=== PATIENT | female | born 1955 | race Caucasian/White ===

== ENCOUNTER 2019-11-19 06:52 | Day surgery (SDC) | payer MEDICARE, BC ==
[~2019-11-19 06:52] MED LIST: Lactated Ringers 1,000 ML IV SCH; Lidocaine 1%/Sod Bicarbonate in NS 8.4% 1 ML Syringe IDERM PRN; Sodium Chloride 0.9% 10 ML Syringe FLUSH PRN
--- NOTE | 2019-11-19 07:52 | PCM.PREANE ---
Preanesthetic Assessment - Procedure Proposed Procedure: Colonoscopy - Anesthesia/Transfusion/Family Hx Anesthesia History: Prior Anesthesia Without Reaction Family History of Anesthesia Reaction: No Transfusion History: Prior Transfusion Without Reaction Type of Transfusion Reactions: Reports: Unknown - Review of Systems General: No Symptoms Pulmonary: No Symptoms Cardiovascular: Dyspnea on Exertion Gastrointestinal: Nausea Neurological: No Symptoms Other: Reports: Diabetes (137 @ 0600) - Physical Assessment NPO Status Date: 11/19/19 NPO Status Time: 05:00 Vital Signs: Last Vital Signs Temp 36.3 C 11/19/19 07:05 Pulse 88 11/19/19 07:05 Resp 16 11/19/19 07:05 BP 143/98 H 11/19/19 07:05 Pulse Ox 96 11/19/19 07:05 Height: 1.63 m Weight: 89.811 kg ASA Class: 3 Mental Status: Alert & Oriented x3 Airway Class: Mallampati = 2 Dentition: Reports: Missing Tooth/Teeth, Caries Thyro-Mental Finger Breadths: 2 Mouth Opening Finger Breadths: 2 ROM/Head Extension: Full Lungs: Clear to Auscultation, Normal Respiratory Effort, Decreased Breath Sounds Cardiovascular: Regular Rate, Regular Rhythm - Allergies Allergies/Adverse Reactions: Allergies Allergy/AdvReac Type Severity Reaction Status Date / Time No Known Allergies Allergy Verified 11/18/19 12:49 - Blood Blood Available: No Product(s) Available: None - Anesthesia Plan Pre-Op Medication Ordered: Beta Maria Victoria Beta Maria Victoria: Metoprolol Med Last Dose Date: 11/19/19 Med Last Dose Time: 05:00 - Acknowledgements Anesthesia Type Planned: MAC Pt an Appropriate Candidate for the Planned Anesthesia: Yes Alternatives and Risks of Anesthesia Discussed w Pt/Guardian: Yes Pt/Guardian Understands and Agrees with Anesthesia Plan: Yes PreAnesthesia Questionnaire HEENT History: Reports: Allergic Rhinitis, Cataract, Impaired Vision Other HEENT History: Wears glasses Cardiovascular History: Reports: Bypass, Heart Failure, High Cholesterol, Hypertension, MD Respiratory History: Reports: Pneumonia, Recurrent Gastrointestinal History: Reports: Diverticulosis Other Gastrointestinal History: gastric ulcer, LLQ pain, sigmoid thickening, dairy intolerance Genitourinary History: Reports: None DEV OPS ENGINEER History: Reports: Fibroids, Musculoskeletal History: Reports: Arthritis, Osteoarthritis, RA Neurological History: Reports: Migraines Psychiatric History: Reports: None Endocrine/Metabolic History: Reports: Diabetes, Type II, Hypothyroidism, Vitamin D Deficiency Hematologic History: Reports: Anemia, Blood Transfusion(s) Other Hematologic History: leukocytosis Immunologic History: Reports: None Oncologic (Cancer) History: Reports: None Dermatologic History: Reports: Psoriasis Other Dermatologic History: left foot wound - Infectious Disease History Infectious Disease History: Reports: Chicken Pox, Measles, Mumps, Pertussis ( Whooping Cough) - Past Surgical History Head Surgeries/Procedures: Reports: None HEENT Surgical History: Reports: Adenoidectomy, Tonsillectomy, Other (See Below) Other HEENT Surgeries/Procedures: eye procedure Cardiovascular Surgical History: Reports: Coronary Artery Bypass GI Surgical History: Reports: Appendectomy, Cholecystectomy, Hernia, Abdominal, Hernia, Inguinal Other GI Surgeries/Procedures: 2 bleeding ulcers Female Surgical History: Reports: Section, D&C, Hysterectomy, Oophorectomy Male Surgical History: Reports: None Endocrine Surgical History: Reports: Thyroidectomy Neurological Surgical History: Reports: None Musculoskeletal Surgical History: Reports: Knee Replacement Other Musculoskeletal Surgeries/Procedures:: bilateral knee replacements Oncologic Surgical History: Reports: None Dermatological Surgical History: Reports: None - SUBSTANCE USE Smoking Status *Q: Current Every Day Smoker Tobacco Use Within Last Twelve Months: Cigarettes Second Hand Smoke Exposure: Yes Days Per Week of Alcohol Use: 0 Number of Drinks Per Day: 0 Total Drinks Per Week: 0 Recreational Drug Use History: No - HOME MEDS Home Medications: Home Meds Aspirin [Halfprin] 81 mg PO DAILY 01/17/15 [History] metFORMIN [Glucophage XR] 1,000 mg PO BID 01/17/15 [History] Loratadine [Claritin] 10 mg PO DAILY PRN 04/07/15 [History] Metoprolol Succinate [Toprol XL] 25 mg PO DAILY 04/07/15 [History] Ferrous Sulfate [Iron] 325 mg PO DAILY 08/19/16 [History] Garlic 1,000 mg PO DAILY 08/19/16 [History] Levothyroxine Sodium [Synthroid] 137 mcg PO DAILY 08/22/16 [History] Rosuvastatin Calcium 20 mg PO BEDTIME 08/22/16 [History] Potassium Chloride 10 meq PO DAILY #1 tablet.er 08/23/16 [Rx] Calcium Carbonate [Calcium] 600 mg PO DAILY 11/18/19 [History] Cholecalciferol (Vitamin D3) [Vitamin D3] 2,000 unit PO DAILY 11/18/19 [History] Dulaglutide [Trulicity] 1.5 mg SQ MO 11/18/19 [History] Empagliflozin [Jardiance] 25 mg PO QAM 11/18/19 [History] Furosemide 20 mg PO DAILY 11/18/19 [History] L Acidophil/B Lactis/B Longum [Florajen3] 460 mg PO DAILY 11/18/19 [History] - CURRENT (IN HOUSE) MEDS Current Meds: Current Medications Lactated Ringer's (Ringers, Lactated) 1,000 mls @ 125 mls/hr IV ASDIRECTED NILAM Stop: 11/19/19 23:00 Last Admin: 11/19/19 07:20 Dose: 125 mls/hr Lidocaine/Sodium Bicarbonate (Buffered Lidocaine 1% In Ns 8.4%) 0.25 ml IDERM ONETIME PRN PRN Reason: Prior to IV Start Stop: 11/19/19 18:00 Last Admin: 11/19/19 07:19 Dose: 0.25 ml Sodium Chloride (Saline Flush) 10 ml FLUSH ASDIRECTED PRN PRN Reason: Keep Vein Open Stop: 11/19/19 18:00
[2019-11-19] MEDS ORDERED: fentaNYL 100 MCG/2 ML SDV ONE (08:01)
[2019-11-19] MEDS ORDERED: Propofol 200 MG/20 ML SDV ONE ×2 (08:01→09:38)
[2019-11-19] MEDS ORDERED: Lidocaine 1% 4 ML ONE (08:01)
--- NOTE | 2019-11-19 10:17 | PCM48HPAN ---
Post Anesthesia Note - EVALUATION WITHIN 48HRS OF ANESTHETIC Vital Signs in Normal Range: Yes Patient Participated in Evaluation: Yes Respiratory Function Stable: Yes (2L O2) Airway Patent: Yes Cardiovascular Function Stable: Yes Hydration Status Stable: Yes Pain Control Satisfactory: Yes Nausea and Vomiting Control Satisfactory: Yes Mental Status Recovered: Yes Vital Signs: Last Vital Signs Temp 36.3 C 11/19/19 07:05 Pulse 88 11/19/19 07:05 Resp 16 11/19/19 07:05 BP 143/98 H 11/19/19 07:05 Pulse Ox 96 11/19/19 07:05
[2019-11-19 11:02] VITALS: BP 140/86; PULSE 82
--- NOTE | 2019-11-19 15:50 | PCM.PRNOTE ---
- Free Text/Narrative Note: Date: 11/19/2019 Procedure: diagnostic colonoscopy Endoscopist: Lane Marks MD Hx: remote history of diverticulitis, now with chronic abdominal pain and CT imaging showing abnormal thickening of the sigmoid colon. Findings: redundant colon. Minimal scattered diverticular disease. Cecum visualized. Prep was good. A few benign appearing polyps were biopsied, no stricture or malignant appearing lesion was identified. Detailed Report: The patient was taken to the endoscopy suite and placed in left lateral decubitus position. Timeout was performed, and monitored anesthesia care was initiated. Visual inspection of the anus revealed no gross abnormality. Digital rectal exam was unremarkable. The colonoscope was lubricated and advanced all the way to the ileocecal valve. Prep was noted to be good. On slow withdrawal of the scope, mucosal surfaces were carefully inspected. There was noted minimal scattered diverticular disease, and a few small benign- appearing polyps that were biopsied. Of note, there did not appear to be any mucosal abnormality at the sigmoid colon or rectosigmoid junction corresponding to findings on CT scan. Retroflexion in the rectum revealed no significant hemorrhoidal disease. The patient tolerated the procedure well. Lane Marks MD General Surgery
== END 2019-11-19 11:21 | disposition home or self-care (01) ==
LOC: JD.SDS 06:52
PROVIDERS: ATTEND Surgery
DX: D12.2 Benign neoplasm of ascending colon (principal); D12.3 Benign neoplasm of transverse colon; D12.5 Benign neoplasm of sigmoid colon; K62.1 Rectal polyp; K57.30 Diverticulosis of large intestine without perforation or abscess without bleeding; Q43.8 Other specified congenital malformations of intestine; I11.0 Hypertensive heart disease with heart failure; I50.9 Heart failure, unspecified; E78.00 Pure hypercholesterolemia, unspecified; G43.909 Migraine, unspecified, not intractable, without status migrainosus; M17.10 Unilateral primary osteoarthritis, unspecified knee; M06.9 Rheumatoid arthritis, unspecified; E11.9 Type 2 diabetes mellitus without complications; E55.9 Vitamin D deficiency, unspecified; F17.210 Nicotine dependence, cigarettes, uncomplicated; Z87.19 Personal history of other diseases of the digestive system; Z79.82 Long term (current) use of aspirin; Z79.84 Long term (current) use of oral hypoglycemic drugs; Z90.49 Acquired absence of other specified parts of digestive tract; Z79.899 Other long term (current) drug therapy
CPT/HCPCS: 00811; J2001; J2704; J3010; J7120

== ENCOUNTER 2021-04-03 12:11 | Emergency (ER) | payer MEDICARE, BC ==
[2021-04-03 12:34] VITALS: BP 110/77; PULSE 82
[2021-04-03] MEDS ORDERED: Sodium Chloride 0.9% 10 ML Syringe FLUSH PRN (12:44)
[2021-04-03] MEDS ORDERED: Meropenem 1 GM in Sodium Chloride 0.9% 100 ML IV ONE (12:54)
[2021-04-03] MEDS ORDERED: Vancomycin 1.5 GM in Sodium Chloride 0.9% 500 ML IV ONE (13:15)
--- NOTE | 2021-04-03 13:53 | EDM.PDOC ---
ED HPI GENERAL MEDICAL PROBLEM - General Chief Complaint: Lower Extremity Injury/Pain Stated Complaint: RT ANKLE INJURY Time Seen by Provider: 04/03/21 12:20 Source of Information: Reports: Patient, RN Notes Reviewed History Limitations: Reports: No Limitations - History of Present Illness INITIAL COMMENTS - FREE TEXT/NARRATIVE: Patient is a 65-year-old female presenting to the emergency department with complaints of a painful ulceration to the bottom of her right great toe. She reports 3 weeks ago, she fell and injured her right ankle and foot. She had pain to the ankle and foot for some time but this resolved. Reports 3 days ago she noticed an open area on the bottom of her right great toe as well as redness and warmth beginning to extend up her foot. Patient has a history of type 2 diabetes. Denies any fever, nausea, or vomiting, however states she has been chilled as of recent. Right Foot Pain Score (Numeric/FACES): 10 - Related Data Allergies Allergy/AdvReac Type Severity Reaction Status Date / Time No Known Allergies Allergy Verified 04/03/21 12:24 Home Meds: Home Meds Aspirin [Halfprin] 81 mg PO DAILY 01/17/15 [History] metFORMIN [Glucophage XR] 1,000 mg PO BID 01/17/15 [History] Loratadine [Claritin] 10 mg PO DAILY PRN 04/07/15 [History] Metoprolol Succinate [Toprol XL] 25 mg PO DAILY 04/07/15 [History] Ferrous Sulfate [Iron] 325 mg PO DAILY 08/19/16 [History] Garlic 1,000 mg PO DAILY 08/19/16 [History] Levothyroxine Sodium [Synthroid] 137 mcg PO DAILY 08/22/16 [History] Rosuvastatin Calcium 20 mg PO BEDTIME 08/22/16 [History] Potassium Chloride 10 meq PO DAILY #1 tablet.er 08/23/16 [Rx] Calcium Carbonate [Calcium] 600 mg PO DAILY 11/18/19 [History] Cholecalciferol (Vitamin D3) [Vitamin D3] 2,000 unit PO DAILY 11/18/19 [History] Dulaglutide [Trulicity] 1.5 mg SQ MO 11/18/19 [History] Empagliflozin [Jardiance] 25 mg PO QAM 11/18/19 [History] Furosemide 20 mg PO DAILY 11/18/19 [History] L Acidophil/B Lactis/B Longum [Florajen3] 460 mg PO DAILY 11/18/19 [History] Past Medical History HEENT History: Reports: Allergic Rhinitis, Cataract, Impaired Vision Other HEENT History: Wears glasses Cardiovascular History: Reports: Bypass, Heart Failure, High Cholesterol, Hypertension, [place] Respiratory History: Reports: Pneumonia, Recurrent Gastrointestinal History: Reports: Diverticulosis Other Gastrointestinal History: gastric ulcer, LLQ pain, sigmoid thickening, dairy intolerance Genitourinary History: Reports: None MANAGER TECHNOLOGY History: Reports: Fibroids, Musculoskeletal History: Reports: Arthritis, Osteoarthritis, RA Neurological History: Reports: Migraines Psychiatric History: Reports: None Endocrine/Metabolic History: Reports: Diabetes, Type II, Hypothyroidism, Vitamin D Deficiency Hematologic History: Reports: Anemia, Blood Transfusion(s) Other Hematologic History: leukocytosis Immunologic History: Reports: None Oncologic (Cancer) History: Reports: None Dermatologic History: Reports: Psoriasis Other Dermatologic History: left foot wound - Infectious Disease History Infectious Disease History: Reports: Chicken Pox, Measles, Mumps, Pertussis (Whooping Cough) - Past Surgical History Head Surgeries/Procedures: Reports: None HEENT Surgical History: Reports: Adenoidectomy, Tonsillectomy, Other (See Below) Other HEENT Surgeries/Procedures: eye procedure Cardiovascular Surgical History: Reports: Coronary Artery Bypass GI Surgical History: Reports: Appendectomy, Cholecystectomy, Hernia, Abdominal, Hernia, Inguinal Other GI Surgeries/Procedures: 2 bleeding ulcers Female Surgical History: Reports: Section, D&C, Hysterectomy, Oophorectomy Endocrine Surgical History: Reports: Thyroidectomy Neurological Surgical History: Reports: None Musculoskeletal Surgical History: Reports: Knee Replacement Other Musculoskeletal Surgeries/Procedures:: bilateral knee replacements Oncologic Surgical History: Reports: None Dermatological Surgical History: Reports: None Social & Family History - Family History HEENT: Reports: Cataract Cardiac: Reports: High Cholesterol, Hypertension, Pacemaker, Stent Respiratory: Reports: Asthma GI: Reports: Hiatal Hernia Musculoskeletal: Reports: Arthritis Neurological: Reports: Alzheimers Disease Endocrine/Metabolic: Reports: Diabetes, type II Dermatologic: Reports: Psoriasis - Tobacco Use Tobacco Use Status *Q: Current Every Day Tobacco User Years of Tobacco use: 50 Packs/Tins Daily: 1 - Caffeine Use Caffeine Use: Reports: Coffee - Recreational Drug Use Recreational Drug Use: No Review of Systems - Review of Systems Review Of Systems: See Below Constitutional: Reports: Chills. Denies: Fever, Weakness Eyes: Reports: No Symptoms Ears: Reports: No Symptoms Nose: Reports: No Symptoms Mouth/Throat: Reports: No Symptoms Respiratory: Reports: No Symptoms Cardiovascular: Reports: No Symptoms GI/Abdominal: Reports: No Symptoms. Denies: Abdominal Pain, Nausea, Vomiting Genitourinary: Reports: No Symptoms Musculoskeletal: Reports: No Symptoms Skin: Reports: Other (Painful ulceration to the ventral right great toe with redness and warmth.) ED EXAM, GENERAL - Physical Exam Exam: See Below General Appearance: Alert, WD/WN, No Apparent Distress Respiratory/Chest: No Respiratory Distress, Lungs Clear, Normal Breath Sounds, No Accessory Muscle Use, Chest Non-Tender Cardiovascular: Normal Peripheral Pulses, Regular Rate, Rhythm, No Edema, No Gallop, No JVD, No Murmur, No Rub Neurological: Alert, Oriented, CN II-XII Intact, Normal Cognition, Normal Gait, Normal Reflexes, No Motor/Sensory Deficits Psychiatric: Normal Affect, Normal Mood Skin Exam: Other (2 cm full-thickness decubitus ulcer to the ventral aspect of the right great toe. 1.5 cm closed, unstageable ulceration immediately proximal to this. Redness, warmth, and edema extending approximately penitent[facility] up the foot.) Course - Vital Signs Last Recorded V/S: Last Vital Signs Temp 97.2 F 04/03/21 12:31 Pulse 82 04/03/21 12:31 Resp 18 04/03/21 12:31 BP 110/77 04/03/21 12:31 Pulse Ox 93 L 04/03/21 12:31 - Orders/Labs/Meds Orders: Active Orders 24 hr Category Date Time Status Foot wo Cont Rt [CT] Stat Exams 04/03/21 12:51 Taken CULTURE BLOOD [BC] Stat Lab 04/03/21 13:05 Received CULTURE BLOOD [BC] Stat Lab 04/03/21 13:10 Received Blood Culture x2 Reflex Set [OM.PC] Stat Oth 04/03/21 12:48 Ordered Peripheral IV Insertion Adult [OM.PC] Stat Oth 04/03/21 12:44 Ordered Labs: Laboratory Tests 04/03/21 04/03/21 04/03/21 Range/Units 13:05 13:05 13:05 WBC 15.37 H (3.98-10.04) K/mm3 RBC 4.70 (3.98-5.22) M/mm3 Hgb 13.8 D (11.2-15.7) gm/dl Hct 42.0 (34.1-44.9) % MCV 89.4 (79.4-94.8) fl MCH 29.4 (25.6-32.2) pg MCHC 32.9 (32.2-35.5) g/dl RDW Std Deviation 45.7 (36.4-46.3) fL Plt Count 357 D (182-369) K/mm3 MPV 9.9 (9.4-12.3) fl Neut % (Auto) 80.0 H (34.0-71.1) % Lymph % (Auto) 12.0 L (19.3-51.7) % [place] % (Auto) 6.9 (4.7-12.5) % Eos % (Auto) 0.6 L (0.7-5.8) Baso % (Auto) 0.2 (0.1-1.2) % Neut # (Auto) 12.30 H (1.56-6.13) K/mm3 Lymph # (Auto) 1.84 (1.18-3.74) K/mm3 [place] # (Auto) 1.06 H (0.24-0.36) K/mm3 Eos # (Auto) 0.09 (0.04-0.36) K/mm3 Baso # (Auto) 0.03 (0.01-0.08) K/mm3 Manual Slide Review Abnormal smear Sodium 137 (136-145) mEq/L Potassium 4.8 (3.5-5.1) mEq/L Chloride 98 (98-107) mEq/L Carbon Dioxide 32 (21-32) mEq/L Anion Gap 11.8 (5-15) BUN 16 (7-18) mg/dL Creatinine 0.8 (0.55-1.02) mg/dL Est Cr Clr Drug Dosing 59.73 mL/min Estimated GFR (MDRD) > 60 (>60) mL/min BUN/Creatinine Ratio 20.0 H (14-18) Glucose 183 H (70-99) mg/dL Lactic Acid 1.5 (0.4-2.0) mmol/L Calcium 9.5 (8.5-10.1) mg/dL Total Bilirubin 0.3 (0.2-1.0) mg/dL AST 25 (15-37) U/L ALT 41 (14-59) U/L Alkaline Phosphatase 84 (46-116) U/L C-Reactive Protein 6.8 H* (<1.0) mg/dL Total Protein 8.2 (6.4-8.2) g/dl Albumin 3.1 L (3.4-5.0) g/dl Globulin 5.1 gm/dL Albumin/Globulin Ratio 0.6 L (1-2) SARS-CoV-2 RNA (CLAUDIA) (NEGATIVE) 04/03/21 Range/Units 14:22 WBC (3.98-10.04) K/mm3 RBC (3.98-5.22) M/mm3 Hgb (11.2-15.7) gm/dl Hct (34.1-44.9) % MCV (79.4-94.8) fl MCH (25.6-32.2) pg MCHC (32.2-35.5) g/dl RDW Std Deviation (36.4-46.3) fL Plt Count (182-369) K/mm3 MPV (9.4-12.3) fl Neut % (Auto) (34.0-71.1) % Lymph % (Auto) (19.3-51.7) % [place] % (Auto) (4.7-12.5) % Eos % (Auto) (0.7-5.8) Baso % (Auto) (0.1-1.2) % Neut # (Auto) (1.56-6.13) K/mm3 Lymph # (Auto) (1.18-3.74) K/mm3 [place] # (Auto) (0.24-0.36) K/mm3 Eos # (Auto) (0.04-0.36) K/mm3 Baso # (Auto) (0.01-0.08) K/mm3 Manual Slide Review Sodium (136-145) mEq/L Potassium (3.5-5.1) mEq/L Chloride (98-107) mEq/L Carbon Dioxide (21-32) mEq/L Anion Gap (5-15) BUN (7-18) mg/dL Creatinine (0.55-1.02) mg/dL Est Cr Clr Drug Dosing mL/min Estimated GFR (MDRD) (>60) mL/min BUN/Creatinine Ratio (14-18) Glucose (70-99) mg/dL Lactic Acid (0.4-2.0) mmol/L Calcium (8.5-10.1) mg/dL Total Bilirubin (0.2-1.0) mg/dL AST (15-37) U/L ALT (14-59) U/L Alkaline Phosphatase (46-116) U/L C-Reactive Protein (<1.0) mg/dL Total Protein (6.4-8.2) g/dl Albumin (3.4-5.0) g/dl Globulin gm/dL Albumin/Globulin Ratio (1-2) SARS-CoV-2 RNA (CLAUDIA) Negative (NEGATIVE) Meds: Medications Discontinued Medications Generic Name Dose Route Start Last Admin Trade Name Freq PRN Reason Stop Dose Admin Acetaminophen 650 mg 04/03/21 14:01 04/03/21 14:19 Acetaminophen 325 Mg Tab PO 04/03/21 14:02 650 mg NOW ONE Administration Meropenem 1 gm/ Sodium 100 mls @ 200 mls/hr 04/03/21 12:54 04/03/21 13:44 Chloride IV 04/03/21 13:23 200 mls/hr ONETIME ONE Administration Vancomycin HCl 1.5 gm/ Sodium 500 mls @ 250 mls/hr 04/03/21 13:15 04/03/21 14:18 Chloride IV 04/03/21 15:14 250 mls/hr ONETIME ONE Administration Sodium Chloride 10 ml 04/03/21 12:44 04/03/21 13:45 Sodium Chloride 0.9% 10 Ml Syringe FLUSH 10 ml ASDIRECTED PRN Administration Keep Vein Open Vancomycin HCl 1 dose 04/03/21 12:54 Pharmacy To Dose - Vancomycin .XX 04/03/21 12:55 ONETIME ONE - Re-Assessments/Exams Free Text/Narrative Re-Assessment/Exam: Patient is a 65-year-old female presenting to the emergency department for evaluation with regards to a painful, erythematous, draining decubitus ulceration to the ventral aspect of her right great toe. On exam, she has a 2 cm full-thickness decubitus ulcer to the ventral aspect of her right great toe as well as a closed, unstageable ulceration immediately proximal to this. She has redness, warmth, and erythema extending penitentiary up her foot. Concern would be for osteomyelitis. I have ordered blood work, blood cultures, CT scan of the foot, and empiric antibiotic therapy to include vancomycin and Merrem IV. 04/03/21 14:26 Hematology significant for WBC elevated at 15.37, glucose 183, CRP 6.8. CT scan shows no evidence of osteomyelitis. It does show soft tissue ulceration volar to the great toe. Patient requesting Tylenol for discomfort. Last dose was around 10 AM this morning. I will discuss with the hospitalist regarding admission. 04/03/21 1450 Case was discussed with Dr. Garcia, hospitalist at [facility] in [place]. He is excepted the patient for direct admission. Patient would like to go by private vehicle. She will complete her vancomycin infusion and then depart for [place]. Departure - Departure Time of Disposition: 14:50 Disposition: DC/Tfer to Acute Hospital 02 Condition: Good Clinical Impression: Diabetic infection of right foot - Discharge Information Referrals: Ping Rodriguez PAYROLL DIRECTOR [Primary Care Provider] - Forms: ED Department Discharge Sepsis Event Note (ED) - Evaluation Sepsis Screening Result: No Definite Risk - Focused Exam Vital Signs: Vital Signs Temp Pulse Resp BP Pulse Ox 04/03/21 12:31 97.2 F 82 18 110/77 93 L - My Orders Last 24 Hours: My Active Orders 04/03/21 12:44 Peripheral IV Insertion Adult [OM.PC] Stat 04/03/21 12:48 Blood Culture x2 Reflex Set [OM.PC] Stat 04/03/21 12:51 Foot wo Cont Rt [CT] Stat 04/03/21 13:05 CULTURE BLOOD [BC] Stat 04/03/21 13:10 CULTURE BLOOD [BC] Stat - Assessment/Plan Last 24 Hours: My Active Orders 04/03/21 12:44 Peripheral IV Insertion Adult [OM.PC] Stat 04/03/21 12:48 Blood Culture x2 Reflex Set [OM.PC] Stat 04/03/21 12:51 Foot wo Cont Rt [CT] Stat 04/03/21 13:05 CULTURE BLOOD [BC] Stat 04/03/21 13:10 CULTURE BLOOD [BC] Stat
[2021-04-03] MEDS ORDERED: Acetaminophen 325 MG Tab PO ONE (14:01)
--- NOTE | 2021-04-04 13:06 | CT ---
CT right foot Technique: Multiple axial sections through the right foot were obtained. Reconstructed coronal and sagittal images were obtained. Comparison: Prior right foot radiographic study of 03/11/10. Findings: On the lateral view there is very slight cortical erosion being seen within the middle phalanx which is suspicious for a small area of osteomyelitis. Soft tissue swelling is noted most prominent within the first toe with soft tissue ulcerations. Degenerative change is noted within the first MTP joint. Plantar spur is noted. Minimal spur at the attachment of the Achilles tendon to the calcaneus is seen. Multiple bony densities are noted off the inferior medial malleolus and medial talus which are well corticated and are compatible with old injury. No other acute abnormality is appreciated. Impression: 1. Findings which are felt compatible with mild osteomyelitis within the middle phalanx of the first toe. This is a disagreement with preliminary report. 2. Degenerative change and soft tissue swelling and soft tissue ulceration as noted above. Diagnostic code #5 I somewhat disagree with preliminary report from [facility], finalized on 04/03/21, 3:02 PM CONDITIONING COACH, code 3
== END 2021-04-03 17:00 ==
LOC: JD.ED 12:11
DX: E11.628 Type 2 diabetes mellitus with other skin complications (principal); L89.890 Pressure ulcer of other site, unstageable; E78.00 Pure hypercholesterolemia, unspecified; I11.0 Hypertensive heart disease with heart failure; I50.9 Heart failure, unspecified; I25.2 Old myocardial infarction; M19.90 Unspecified osteoarthritis, unspecified site; E11.9 Type 2 diabetes mellitus without complications; E03.9 Hypothyroidism, unspecified; Z79.84 Long term (current) use of oral hypoglycemic drugs; Z79.899 Other long term (current) drug therapy; Z79.82 Long term (current) use of aspirin; Z72.0 Tobacco use; Z20.822 Contact with and (suspected) exposure to COVID-19
CPT/HCPCS: 36415; 73700; 80053; 83605; 85025; 86140; 87040; 96365; 96366; 96367; 99284; A9270; J2185; J3370; J7040; U0002

== ENCOUNTER 2021-12-16 23:33 | Emergency (ER) | payer MEDICARE, BC ==
[2021-12-16 23:52] VITALS: BP 122/72; PULSE 93
[2021-12-17] MEDS ORDERED: Ondansetron 4 MG/2 ML SDV IVPUSH ONE (00:05)
[2021-12-17] MEDS ORDERED: Sodium Chloride 0.9% 1,000 ML IV SCH (00:15)
[2021-12-17] MEDS: Sodium Chloride 0.9% 10 ML Syringe FLUSH PRN ×2 (00:24→01:19)
[2021-12-17] MEDS ORDERED: Morphine 4 MG/ML Syringe IVPUSH ONE (00:50)
[2021-12-17] MEDS ORDERED: Sodium Chloride 0.9% 10 ML SDV FLUSH ONE (01:17)
[2021-12-17] MEDS ORDERED: Iopamidol 612 MG/ML 100 ML Bottle IVPUSH ONE (01:17)
== END 2021-12-17 02:30 | disposition home or self-care (01) ==
LOC: JD.ED 23:33
DX: K59.00 Constipation, unspecified (principal); I11.0 Hypertensive heart disease with heart failure; I50.9 Heart failure, unspecified; E78.00 Pure hypercholesterolemia, unspecified; I25.2 Old myocardial infarction; M06.9 Rheumatoid arthritis, unspecified; E11.9 Type 2 diabetes mellitus without complications; E03.9 Hypothyroidism, unspecified; D64.9 Anemia, unspecified; Z90.49 Acquired absence of other specified parts of digestive tract; Z72.0 Tobacco use; Z79.82 Long term (current) use of aspirin; Z79.84 Long term (current) use of oral hypoglycemic drugs; Z79.899 Other long term (current) drug therapy
CPT/HCPCS: 36415; 74177; 80053; 83690; 83735; 85025; 86140; 96374; 96375; 99284; J2270; J2405; J7030; Q9967

== ENCOUNTER 2022-01-25 18:26 | Inpatient (IN) | payer MEDICARE, BC ==
[2022-01-25] MEDS ORDERED: Lactated Ringers 1,000 ML IV ONE (19:19)
[2022-01-25] MEDS ORDERED: cefTRIAXone 1 GM in Sodium Chloride 0.9% 100 ML IV ONE (20:41)
[2022-01-25] MEDS ORDERED: Ondansetron 4 MG Tab.DIS PO PRN (20:54)
[2022-01-25] MEDS ORDERED: LORazepam 2 MG/ML SDV IV ONE (20:54)
[2022-01-25] MEDS ORDERED: cefTRIAXone 1 GM AdvVial IV ONE (21:03)
[2022-01-25] MEDS ORDERED: Pantoprazole 40 MG Vial IVPUSH ONE (21:09)
[2022-01-25] MEDS: Enoxaparin 40 MG/0.4 ML Syringe SUBCUT SCH (21:44)
[2022-01-25] MEDS: Nicotine 14 MG/24 Hr Patch TRDERM SCH (23:30)
[2022-01-26] MEDS: Dextrose 5%-0.45% NaCl 1,000 ML IV SCH ×3 (00:48→20:44)
[2022-01-26] MEDS: Acetaminophen 325 MG Tab PO PRN ×3 (00:49→19:32)
[2022-01-26] MEDS: Carvedilol 3.125 MG Tab PO SCH ×2 (06:55→17:10)
[2022-01-26] MEDS: Aspirin 81 MG Tab.EC PO SCH (09:20)
[2022-01-26] MEDS: Potassium Chloride 10 MEQ Tab.ER PO SCH (09:21)
[2022-01-26] MEDS: Nicotine 14 MG/24 Hr Patch TRDERM SCH ×2 (09:57→17:04)
[2022-01-26] MEDS: Levothyroxine 125 MCG Tab PO SCH (10:18)
[2022-01-26] MEDS ORDERED: Acetaminophen 325 MG Tab PO ONE (13:16)
[2022-01-26] MEDS ORDERED: Ibuprofen 600 MG Tab PO PRN (16:45)
[2022-01-26] MEDS ORDERED: Piperacillin/Tazobactam 4.5 GM in Sodium Chloride 0.9% 100 ML IV ONE (17:30)
[2022-01-26] MEDS ORDERED: Sodium Chloride 0.9% 1,000 ML IV ONE (17:32)
[2022-01-26] MEDS ORDERED: Levofloxacin/Dextrose 5%-Water 750 MG in Premix Bag 1 BAG IV SCH (17:45)
[2022-01-26] MEDS: Insulin Lispro 100 Unit/ML 3 ML KwikPen SUBCUT SCH ×2 (19:06→22:23)
[2022-01-26] MEDS: Levofloxacin/Dextrose 5%-Water 750 MG in Premix Bag 1 BAG IV SCH (19:27)
[2022-01-26] MEDS: Potassium Chloride 10 MEQ in Premix Bag 1 BAG IV SCH ×3 (20:30→22:58)
[2022-01-26] MEDS: Enoxaparin 40 MG/0.4 ML Syringe SUBCUT SCH (20:52)
[2022-01-26] MEDS: Rosuvastatin 10 MG Tab PO SCH (20:53)
[2022-01-26] MEDS ORDERED: cefTRIAXone 1 GM in Sodium Chloride 0.9% 100 ML IV SCH (21:00)
[2022-01-27] MEDS: Potassium Chloride 10 MEQ in Premix Bag 1 BAG IV SCH (00:08)
[2022-01-27] MEDS: Piperacillin/Tazobactam 4.5 GM in Sodium Chloride 0.9% 100 ML IV SCH ×3 (01:41→18:52)
[2022-01-27] MEDS: Levothyroxine 125 MCG Tab PO SCH (06:14)
[2022-01-27] MEDS: Carvedilol 3.125 MG Tab PO SCH ×2 (06:14→16:33)
[2022-01-27] MEDS: Insulin Lispro 100 Unit/ML 3 ML KwikPen SUBCUT SCH ×4 (09:06→21:30)
[2022-01-27] MEDS: Aspirin 81 MG Tab.EC PO SCH (09:07)
[2022-01-27] MEDS: Potassium Chloride 10 MEQ Tab.ER PO SCH (09:08)
[2022-01-27] MEDS: Nicotine 14 MG/24 Hr Patch TRDERM SCH (09:09)
[2022-01-27] MEDS: Acetaminophen 325 MG Tab PO PRN ×2 (16:33→21:23)
[2022-01-27] MEDS: Levofloxacin/Dextrose 5%-Water 750 MG in Premix Bag 1 BAG IV SCH (17:09)
[2022-01-27] MEDS: Rosuvastatin 10 MG Tab PO SCH (20:53)
[2022-01-27] MEDS: Enoxaparin 40 MG/0.4 ML Syringe SUBCUT SCH (20:53)
[2022-01-28] MEDS: Piperacillin/Tazobactam 4.5 GM in Sodium Chloride 0.9% 100 ML IV SCH ×2 (01:31→09:10)
[2022-01-28] MEDS ORDERED: Ondansetron 4 MG/2 ML SDV IVPUSH PRN (03:34)
[2022-01-28] MEDS ORDERED: Ondansetron 4 MG/2 ML SDV ONE (03:37)
[2022-01-28] MEDS: Carvedilol 3.125 MG Tab PO SCH ×2 (06:27→18:20)
[2022-01-28] MEDS: Levothyroxine 125 MCG Tab PO SCH (06:27)
[2022-01-28] MEDS: Insulin Lispro 100 Unit/ML 3 ML KwikPen SUBCUT SCH ×4 (09:07→21:16)
[2022-01-28] MEDS: Potassium Chloride 10 MEQ Tab.ER PO SCH (09:08)
[2022-01-28] MEDS: Aspirin 81 MG Tab.EC PO SCH (09:09)
[2022-01-28] MEDS: Nicotine 14 MG/24 Hr Patch TRDERM SCH (09:09)
[2022-01-28] MEDS: Levofloxacin/Dextrose 5%-Water 750 MG in Premix Bag 1 BAG IV SCH (18:16)
[2022-01-28] MEDS: Rosuvastatin 10 MG Tab PO SCH (21:04)
[2022-01-28] MEDS: Enoxaparin 40 MG/0.4 ML Syringe SUBCUT SCH (21:05)
[2022-01-29] MEDS: Carvedilol 3.125 MG Tab PO SCH (06:47)
[2022-01-29] MEDS: Levothyroxine 125 MCG Tab PO SCH (06:47)
[2022-01-29] MEDS: Insulin Lispro 100 Unit/ML 3 ML KwikPen SUBCUT SCH ×2 (08:35→12:00)
[2022-01-29] MEDS: Aspirin 81 MG Tab.EC PO SCH (08:36)
[2022-01-29] MEDS: Potassium Chloride 10 MEQ Tab.ER PO SCH (08:36)
[2022-01-29] MEDS: Nicotine 14 MG/24 Hr Patch TRDERM SCH (08:37)
[2022-01-29] MEDS ORDERED: Potassium Chloride 20 MEQ Tab.ER PO ONE (11:30)
[2022-01-29 11:47] VITALS: BP 108/77; PULSE 79
[2022-01-29] MEDS ORDERED: Levofloxacin/Dextrose 5%-Water 750 MG in Premix Bag 1 BAG IV SCH (12:00)
== END 2022-01-29 15:19 | disposition home or self-care (01) | DRG 871 ==
LOC: JD.ED 18:26 → JD.MS 20:54
PROVIDERS: ADMIT Pediatrics; ATTEND Pediatrics
PROC: 5A0935A Assistance with Respiratory Ventilation, Less than 24 Consecutive Hours, High Flow/Velocity Cannula (ICD-10-PCS; principal; 2022-01-25)
DX: A41.59 Other Gram-negative sepsis (principal); G92.8 Other toxic encephalopathy; N39.0 Urinary tract infection, site not specified; I25.810 Atherosclerosis of coronary artery bypass graft(s) without angina pectoris; T58.91XA Toxic effect of carbon monoxide from unspecified source, accidental (unintentional), initial encounter; R31.9 Hematuria, unspecified; J30.9 Allergic rhinitis, unspecified; J44.9 Chronic obstructive pulmonary disease, unspecified; F17.210 Nicotine dependence, cigarettes, uncomplicated; E87.5 Hyperkalemia; K57.90 Diverticulosis of intestine, part unspecified, without perforation or abscess without bleeding; Z20.822 Contact with and (suspected) exposure to COVID-19; E86.0 Dehydration; L40.9 Psoriasis, unspecified; E11.9 Type 2 diabetes mellitus without complications; H54.7 Unspecified visual loss; E78.00 Pure hypercholesterolemia, unspecified; I11.0 Hypertensive heart disease with heart failure; F17.200 Nicotine dependence, unspecified, uncomplicated; I50.9 Heart failure, unspecified; M19.90 Unspecified osteoarthritis, unspecified site; D25.9 Leiomyoma of uterus, unspecified; E11.51 Type 2 diabetes mellitus with diabetic peripheral angiopathy without gangrene; D64.9 Anemia, unspecified; E03.9 Hypothyroidism, unspecified; E55.9 Vitamin D deficiency, unspecified; Z96.653 Presence of artificial knee joint, bilateral; I77.9 Disorder of arteries and arterioles, unspecified; M06.9 Rheumatoid arthritis, unspecified; E06.3 Autoimmune thyroiditis; G43.909 Migraine, unspecified, not intractable, without status migrainosus; Z86.19 Personal history of other infectious and parasitic diseases; Z88.8 Allergy status to other drugs, medicaments and biological substances; Z90.89 Acquired absence of other organs; Z79.82 Long term (current) use of aspirin; Z79.890 Hormone replacement therapy; Z79.899 Other long term (current) drug therapy; Z95.1 Presence of aortocoronary bypass graft; Z89.421 Acquired absence of other right toe(s); Z79.84 Long term (current) use of oral hypoglycemic drugs; I25.2 Old myocardial infarction; Z87.01 Personal history of pneumonia (recurrent); Z90.49 Acquired absence of other specified parts of digestive tract; Z90.710 Acquired absence of both cervix and uterus; Z88.5 Allergy status to narcotic agent
CPT/HCPCS: 36415; 36600; 70450; 71045; 80053; 81001; 82375 ×2; 82803 ×2; 82947; 83605; 84484; 85025; 85610; 85730; 87040 ×2; 87077; 87086; 87088; 87154; 87186 ×2; 99285; J7120; U0002; 83735; 84443; 85027; 85652; 86140; 93005; 93010; 94761; 94762; 97116-GP; 97161-GP; 99232; 99233; 99239; A9270-GY; C9113; J0696; J1650; J1956; J2060; J2405; J2543; J3480; J7030; J7042

== ENCOUNTER 2025-09-04 07:31 | Emergency (ER) | payer MEDICARE, BC ==
[2025-09-04 08:16] LABS: BASOPHILS ABSOLUTE AUTO 0.0 K/mm3 (0.0-0.2); BASOPHILS PERCENT AUTO 0.1 % (0.0-1.0); EOSINOPHILS ABSOLUTE AUTO 0.0 K/mm3 (0.0-0.4); EOSINOPHILS PERCENT AUTO 0.1 % (0.0-6.0); IMMATURE GRAN ABSOLUTE AUTO 0.03 K/mm3 (0.00-0.05); IMMATURE GRAN PERCENT AUTO 0.3 % (0.0-0.4); LYMPHOCYTES ABSOLUTE AUTO 0.8 K/mm3 (1.0-4.8); LYMPHOCYTES PERCENT AUTO 7.3 % (24.0-44.0); MEAN PLATELET VOLUME 11.5 fl (9.4-12.3); MONOCYTES ABSOLUTE AUTO 0.6 K/mm3 (0.0-0.8); MONOCYTES PERCENT AUTO 5.1 % (0.0-8.0); NEUTROPHILS ABSOLUTE AUTO 9.5 K/mm3 (1.8-7.7); NEUTROPHILS PERCENT AUTO 87.1 % (41.0-71.0); NRBC ABSOLUTE 0.00 (0.00-0.02); NRBC PERCENT 0.0 % (0.0-0.2); PLATELET COUNT,PLT 206 K/mm3 (150-400); RED BLOOD CELL COUNT 4.93 M/mm3 (4.10-5.30); WHITE BLOOD CELL COUNT,WBC 10.89 K/mm3 (3.9-11.3)
[2025-09-04 08:30] LABS: INR 0.99
[2025-09-04 08:32] LABS: PTT,PARTIAL THROMBOPLSTIN TIME 25.4 SECONDS (21.7-31.4)
[2025-09-04 08:42] LABS: LACTIC ACID 2.8 mmol/L (0.4-2.0)
[2025-09-04 08:43] LABS: A/G RATIO 1.0 (1-2); ALANINE AMINOTRANSFERASE,ALT 24.0 U/L (14-59); ASPARTATE AMNIOTRANSFERASE,AST 19.0 U/L (15-37); BILIRUBIN TOTAL 0.4 mg/dL (0.2-1.0); BLOOD UREA NITROGEN,BUN 21.0 mg/dL (7-18); CARBON DIOXIDE,CO2 34.0 mEq/L (21-32); CHLORIDE,CL 100.0 mEq/L (98-107); CREATINE KINASE,CK 55.0 U/L (26-192); CREATININE 1.2 mg/dL (0.55-1.02); EST CRCL DRUG DOSING (CG) 37.13 mL/min; ESTIMATED GFR 48.0 mL/min (>60); GLUCOSE RANDOM 165.0 mg/dL (70-99); POTASSIUM,K 5.6 mEq/L (3.5-5.1); PROTEIN TOTAL,TP 7.6 g/dl (6.4-8.2); SODIUM,NA 140.0 mEq/L (136-145); TSH 0.856 uIU/mL (0.358-3.74)
[2025-09-04 08:49] LABS: APPEARANCE,URINE SLT CLOUDY (Clear); GLUCOSE,URINE 2+ (Negative); OCCULT BLOOD,URINE 1+ (Negative)
[2025-09-04 08:55] LABS: BUPRENORPHINE SCREEN,URINE NEGATIVE (CUTOFF=10); METHADONE SCREEN, URINE NEGATIVE (CUTOFF=200); METHAMPHETAMINES SCREEN, URINE NEGATIVE (CUTOFF=500); OXYCODONE SCREEN,URINE NEGATIVE (CUT0FF=100); THC SCREEN,URINE 20 NG/ML NEGATIVE (CUTOFF=50)
[2025-09-04 08:55] LABS: TROPONIN I HIGH SENSITIVITY 512.0 pg/mL (<=51)
[2025-09-04 09:00] LABS: CORONAVIRUS COVID-19 NAA NEGATIVE (NEGATIVE); INFLUENZA A NAA NEGATIVE (NEGATIVE); RESPIRATORY SYNCYTIAL VIR NAA NEGATIVE (NEGATIVE)
[2025-09-04 09:03] LABS: AMPHETAMINES SCREEN, URINE NEGATIVE (CUTOFF=500)
[2025-09-04] MEDS: Iopamidol 755 Mg/ML 100 ML Bottle IVPUSH ONE (09:15)
[2025-09-04] MEDS: Sodium Chloride 0.9% 10 ML Syringe FLUSH PRN ×2 (09:15→11:06)
[2025-09-04] MEDS: cefTRIAXone 1 GM in Water For Injection, Sterile 10 ML IVPUSH ONE (11:06)
[2025-09-04] MEDS: Insulin Regular, Human 100 Units/ML 10 ML Vial IV ONE (11:15)
[2025-09-04] MEDS: 50% Dextrose in Water 50 ML Syringe IVPUSH ONE (11:15)
[2025-09-04] MEDS: Heparin Sodium 5,000 Units/ML Vial IVPUSH ONE (12:06)
[2025-09-04] MEDS: Heparin Sodium/D5W 250 ML IV SCH (12:06)
[2025-09-04 14:21] VITALS: BP 64/55; PULSE 78
== END 2025-09-04 13:55 ==
LOC: JD.ED 07:31
DX: I21.4 Non-ST elevation (NSTEMI) myocardial infarction (principal); I95.9 Hypotension, unspecified; N39.0 Urinary tract infection, site not specified; E87.5 Hyperkalemia; R74.02 Elevation of levels of lactic acid dehydrogenase [LDH]; R91.1 Solitary pulmonary nodule; I11.0 Hypertensive heart disease with heart failure; I50.9 Heart failure, unspecified; E78.00 Pure hypercholesterolemia, unspecified; E66.9 Obesity, unspecified; E11.9 Type 2 diabetes mellitus without complications; E03.9 Hypothyroidism, unspecified; Z88.8 Allergy status to other drugs, medicaments and biological substances; Z79.84 Long term (current) use of oral hypoglycemic drugs; Z79.890 Hormone replacement therapy; Z79.899 Other long term (current) drug therapy; Z90.49 Acquired absence of other specified parts of digestive tract; Z90.710 Acquired absence of both cervix and uterus
CPT/HCPCS: 36415; 51701; 70450; 71275; 72125; 74177; 80053; 80143; 80179; 80306; 81001; 82550; 82947; 83605; 83690; 83735; 83880; 84443; 84484; 85025; 85610; 85730; 87040; 87086; 87088; 87186; 87637; 93005; 94640; 96361; 96365; 96366; 96375; 99285; A9270; C1758; J0696; J1644; J1815; J7030; Q9967